=== PATIENT | male | born 1950 | race Two or more races ===

== ENCOUNTER 2018-11-06 07:05 | Day surgery (SDC) | payer OTHER ==
[~2018-11-06] VITALS: Ht 165.1 cm; Wt 79.4 kg
[2018-11-06] VITALS (11 sets, daily range): BP systolic 113–151; BP diastolic 59–85
[~2018-11-06 07:05] MED LIST: NKM; ceFAZolin 1gm IVPB IVPB ONE; celeBREX 200mg Cap **SURGERY PATIENTS ONLY ORAL ONE; oxyCONTIN 20mg tab ORAL ONE
--- NOTE | 2018-11-06 07:25 | Pre-Procedure Note/Attestation ---
Pre-Procedure Note/Attestation Complete Prior to Procedure Planned Procedure: right Procedure Narrative: shoulder arthroscopy, sad Indications for Procedure Pre-Operative Diagnosis: right shoulder impingement Attestation I attest that I discussed the nature of the procedure; its benefits; risks and complications; and alternatives (and the risks and benefits of such alternatives ), prior to the procedure, with the patient (or the patient's legal title insurance sales representative). I attest that, if there was a reasonable possibility of needing a blood transfusion, the patient (or the patient's legal title insurance sales representative) was given the [facility] standardized written summary, pursuant to the [place] Blood Safety Act ([place] Health and Safety Code # 1645, as amended). I attest that I re-evaluated the patient just prior to the surgery and that there has been no change in the patient's H&P, except as documented below: Gokul Lepe MD November 06, 2018 07:25
--- NOTE | 2018-11-06 07:26 | Operative Note - PDOC ---
Operative Note Operative Note Pre-op Diagnosis: right shoulder impingement Procedure: see op report Post-op Diagnosis: same as pre-op plus Operative Findings: consistent w/pre-op dx studies Anesthesia: MAC Specimen: none Complications: none Condition: stable Implant(s) used?: No Gokul Lepe MD November 06, 2018 07:26
[2018-11-06] MEDS ORDERED: Tylenol #3 tab (300mg/30mg) ORAL PRN (07:30)
[2018-11-06] MEDS ORDERED: HYDROmorphone 1mg/ml Carpuject SUBQ PRN (07:30)
[2018-11-06] MEDS ORDERED: D5 1/2NS 1,000 ML IV SCH (07:30)
[2018-11-06] MEDS ORDERED: HYDROcodone/Acetamin 5/325 tab ORAL PRN ×2 (07:30→10:45)
[2018-11-06] MEDS ORDERED: SAW PALMETTO C1 EACH PO (09:00)
[2018-11-06] MEDS ORDERED: oxyCONTIN 20mg tab ORAL ONE (09:12)
[2018-11-06] MEDS ORDERED: celeBREX 200mg Cap **SURGERY PATIENTS ONLY ORAL ONE (09:12)
[2018-11-06] MEDS ORDERED: NS Irrig 4000ml IRRIG ONE ×2 (10:30→11:59)
[2018-11-06] MEDS ORDERED: LR 1000ml ONE (10:30)
[2018-11-06] MEDS ORDERED: LR 1000ml 1,000 ML IVLG SCH (10:40)
[2018-11-06] MEDS ORDERED: Propofol 200mg/20ml IV ONE (10:44)
[2018-11-06] MEDS ORDERED: Dexamethasone 4mg/ml vial ONE ×2 (10:44→10:50)
[2018-11-06] MEDS ORDERED: Sodium Chloride 10ml vial INJ ONE (10:44)
[2018-11-06] MEDS ORDERED: Lidocaine 1% MPF 10mg/ml 5ml ONE (10:44)
--- NOTE | 2018-11-06 10:44 | Anethesia Preoperative Eval ---
Anesthesia Pre-op PMH/ROS General Date of Evaluation: November 06, 2018 Time of Evaluation: 10:36 Anesthesiologist: Brissa ASA Score: ASA 2 Mallampati Score Class I : Soft palate, uvula, fauces, pillars visible Class II: Soft palate, uvula, fauces visible Class III: Soft palate, base of uvula visible Class IV: Only hard plate visible Mallampati Classification: Class III Surgeon: Roberth Diagnosis: R Shoulder Pain Surgical Procedure: R Shoulder Arthroscopy Family History: no anesthesia problems Allergies: Coded Allergies: No Known Allergies (Unverified , 11/05/18) Medications: see eMAR Patient NPO?: Yes Past Medical History Cardiovascular: Reports: HTN PSxH Narrative: Inguinal Hernia Repair Anesthesia Pre-op Phys. Exam Physician Exam Last Vital Signs Date Time Temp Pulse Resp B/P (MAP) Pulse Ox O2 Delivery O2 Flow Rate FiO2 11/06/18 09:07 97.7 66 20 151/82 95 Room Air Constitutional: NAD Neurologic: CN 2-12 intact Cardiovascular: RRR Respiratory: CTA Gastrointestinal: S/NT/ND Airway Exam Mallampati Score: Class III MO: full TMD: Rececding Chin ROM: limited Teeth: missing, intact Anesthesia Pre-op A/P Risk Assessment & Plan Assessment: ASA 2 Plan: GA, Supraclavicular Block, SED Status Change Before Surgery: No Pre-Antibiotics Dru Gram Ancef IV Given Within 1 Hr of Incision: Yes Time Given: 11:01 Mitchell Brumfield MD November 06, 2018 10:44
[2018-11-06] MEDS ORDERED: Hydromorphone 0.5mg/0.5ml inj IVP PRN (10:45)
[2018-11-06] MEDS ORDERED: Labetalol 5mg/ml 20ml vial IV PRN (10:45)
[2018-11-06] MEDS ORDERED: Alfentanil 2ml Inj ONE (10:45)
[2018-11-06] MEDS ORDERED: Meperidine 50mg/ml Inj(FOR RIGORS ONLY) IVP PRN (10:45)
[2018-11-06] MEDS ORDERED: EPINEPHrine 1mg/1ml Amp ONE ×2 (10:45→11:01)
[2018-11-06] MEDS ORDERED: DiphenhydrAMINE 50mg/ml Inj IVP PRN (10:45)
[2018-11-06] MEDS ORDERED: fentaNYL 100 mcg/2 mL IV PRN (10:45)
[2018-11-06] MEDS ORDERED: Ropivacaine 5mg/ml Vial 30ml INJ ONE (10:45)
[2018-11-06] MEDS ORDERED: Ketorolac 30mg Inj IV PRN ×2 (10:45)
[2018-11-06] MEDS ORDERED: Metoclopramide 10mg/2ml Inj IVP PRN (10:45)
[2018-11-06] MEDS ORDERED: oxyCODONE HCL/Acetaminophen 5/325mg ORAL PRN (10:45)
[2018-11-06] MEDS ORDERED: Atropine Sulfate 0.4mg/ml inj IVP PRN (10:45)
[2018-11-06] MEDS ORDERED: LORazepam Inj 2mg/ml 1ml IV PRN (10:45)
[2018-11-06] MEDS ORDERED: Midazolam 2mg/2ml Inj IVP PRN (10:45)
[2018-11-06] MEDS ORDERED: HYDROcodone/Acetamin 7.5/325 tab ORAL PRN (10:45)
[2018-11-06] MEDS ORDERED: Kenalog-40 1ml Vial ONE (11:00)
[2018-11-06] MEDS ORDERED: Duramorph PF 5mg/10ml amp ONE (11:01)
[2018-11-06] MEDS ORDERED: Bupivacaine w/Epi 0.25% 30ml Vial INJ ONE (11:01)
[2018-11-06] MEDS ORDERED: Ketorolac 30mg Inj ONE (11:01)
--- NOTE | 2018-11-06 11:31 | Immediate Post-Op Evaluation ---
Immediate Post-Op Evalulation Immediate Post-Op Evalulation Procedure: R Shoulder Arthroscopy Date of Evaluation: November 06, 2018 Time of Evaluation: 13:02 IV Fluids: 800 LR Blood Products: 0 Estimated Blood Loss: 5 Urinary Output: 0 Blood Pressure Systolic: 125 Blood Pressure Diastolic: 59 Pulse Rate: 56 Respiratory Rate: 16 O2 Sat by Pulse Oximetry: 98 Temperature (Fahrenheit): 97.4 Pain Score (1-10): 2 Nausea: No Vomiting: No Complications 0 Patient Status: awake, reacts, patent, none Hydration Status: adequate Dru Gram Ancef IV Given Within 1 Hr of Incision: Yes Time Given: 11:01 Mitchell Brumfield MD November 06, 2018 11:31
--- NOTE | 2018-11-06 11:31 | 48 Hour Post Anesthesia Eval ---
Post Anesthesia Evaluation Procedure: R Shoulder Arthroscopy Date of Evaluation: November 06, 2018 Time of Evaluation: 15:12 Blood Pressure Systolic: 121 0: 57 Pulse Rate: 54 Respiratory Rate: 18 Temperature (Fahrenheit): 98.2 O2 Sat by Pulse Oximetry: 98 Airway: patent Nausea: No Vomiting: No Pain Intensity: 2 Hydration Status: adequate Cardiopulmonary Status: Stable Mental Status/LOC: patient returned to baseline Follow-up Care/Observations: 0 Post-Anesthesia Complications: 0 Follow-up care needed: ready to discharge Mitchell Brumfield MD November 06, 2018 11:31
--- NOTE | 2018-11-06 23:30 | Operative Note - Dictated ---
DATE OF OPERATION: 11/06/2018 PREOPERATIVE DIAGNOSES: 1. Right shoulder impingement syndrome. 2. Right shoulder rotator cuff tear. 3. Right shoulder SLAP tear. POSTOPERATIVE DIAGNOSES: 1. Right shoulder impingement syndrome. 2. Right shoulder rotator cuff tear. 3. Right shoulder SLAP tear. PROCEDURES: 1. Right shoulder extensive intra-articular debridement. 2. Right shoulder subacromial decompression bursectomy. 3. Right shoulder arthroscopic rotator cuff repair. SURGEON: Gokul Lepe M.D. ANESTHESIA: Interscalene with general. INDICATION FOR PROCEDURE: This is a pleasant gentleman, who has had progressive right shoulder pain. He had MRI, which showed a full-thickness or high-grade, almost full-thickness rotator cuff tear. He has failed conservative treatment and elected to undergo right shoulder arthroscopic rotator cuff repair. Risks, limitations, expectations, and complications of procedure were discussed in detail. All questions addressed. DESCRIPTION OF PROCEDURE: After informed consent was obtained, the patient was brought to the operating room. The patient was placed under interscalene general anesthesia. Right shoulder was prepped and draped in a sterile manner. A camera was placed in the right shoulder. There was some fraying of the superior labrum and the anterior labrum was intact. There was no chondral damage. The biceps tendon was intact. The footprint of rotator cuff had significant fraying and tearing. There was an area where consisted with full-thickness tear. A shaver was then placed through the tear into the glenohumeral joint. Debridement of the superior labrum was performed down to stable margin of tissue. The tissue lateral to the articular margin was debrided. Camera was then placed under subacromial space. Complete bursectomy was performed. Acromioplasty was started from lateral to medial and completed from posterior to anterior. Once that was completed, anchor was placed and the rotator cuff was tied. One of the sutures broke off the posterior limb and therefore the other suture limb had to be removed. Another anchor was attempted, however, it was not holding in place, therefore a corkscrew anchor was then used instead given that he had pretty weak bone. Hiller sutures were then placed along with lateral row anchor. Once that was completed, the footprint was recreated. At this point, the instruments were removed. Portal sites were closed with 3-0 Monocryl sutures. Steri-Strips and a sterile dressing were applied. The patient was awoken and taken to recovery room with stable vital signs. ESTIMATED BLOOD LOSS: None. COMPLICATIONS: None. SPECIMENS: None. IMPLANTS: Include [employer] rotator cuff repair anchors. Gokul Lepe M.D. DR: DIAN JOB#: [id number] CC: ERI
== END 2018-11-06 14:50 | disposition home or self-care (01) ==
LOC: SUR 07:05
DX: M75.121 Complete rotator cuff tear or rupture of right shoulder, not specified as traumatic (principal); M75.41 Impingement syndrome of right shoulder; S43.401A Unspecified sprain of right shoulder joint, initial encounter; X58.XXXA Exposure to other specified factors, initial encounter; Y92.9 Unspecified place or not applicable; E66.3 Overweight; Z68.29 Body mass index [BMI] 29.0-29.9, adult; I10 Essential (primary) hypertension
CPT/HCPCS: 29826; 29827; C1713; J0171; J0690; J1100; J2250; J2405; J2704; J2795; J3490; 94003; 94150

== ENCOUNTER 2019-01-06 05:09 | Inpatient (IN) | payer OTHER ==
[2019-01-06] VITALS (11 sets, daily range): BP systolic 92–151; BP diastolic 50–86
[~2019-01-06] VITALS: Ht 167.6 cm; Wt 85.3 kg
[~2019-01-06 05:09] MED LIST changes: +SAW PALMETTO C1 EACH PO; -ceFAZolin 1gm IVPB IVPB ONE; -celeBREX 200mg Cap **SURGERY PATIENTS ONLY ORAL ONE; -oxyCONTIN 20mg tab ORAL ONE
[2019-01-06] MEDS ORDERED: fentaNYL 100 mcg/2 mL IV ONE (06:37)
[2019-01-06] MEDS ORDERED: Midazolam 2mg/2ml Inj ONE (06:37)
[2019-01-06] MEDS ORDERED: Phenylephrine 10mg/ml Vial ONE (06:38)
[2019-01-06] MEDS ORDERED: Dexamethasone 4mg/ml vial ONE (06:38)
[2019-01-06] MEDS ORDERED: Lidocaine 1% MPF 10mg/ml 5ml ONE (06:38)
[2019-01-06] MEDS ORDERED: Vancomycin 1gm vial IVPB ONE (06:42)
[2019-01-06] MEDS ORDERED: Gelfoam Size TOPIC ONE (06:42)
[2019-01-06] MEDS ORDERED: Thrombin 5000 units TOPIC ONE (06:42)
[2019-01-06] MEDS ORDERED: Zemuron 50mg/5ml Inj IV ONE (06:43)
[2019-01-06] MEDS ORDERED: Bacitracin 50000 Units Vial ONE (06:43)
[2019-01-06] MEDS ORDERED: Succinylcholine 20mg/ml 10ml vial ONE (06:43)
[2019-01-06] MEDS ORDERED: Propofol 1,000mg/ 100ml btl IV ONE (07:00)
[2019-01-06] MEDS ORDERED: ceFAZolin sod 1 GM in NS 55 ML IVPB ONE (07:00)
[2019-01-06] MEDS ORDERED: Sterile Water Irrig 1000ml IRRIG ONE (07:00)
[2019-01-06] MEDS ORDERED: NS Irrig 1000ml ONE (07:00)
[2019-01-06] MEDS ORDERED: LR 1000ml ONE (07:00)
--- NOTE | 2019-01-06 07:20 | Pre-Procedure Note/Attestation ---
Pre-Procedure Note/Attestation Complete Prior to Procedure Planned Procedure: not applicable Procedure Narrative: Anterior cervical discectomy and fusion of C56 and 67 Indications for Procedure Pre-Operative Diagnosis: herniation C56,67 Attestation I attest that I discussed the nature of the procedure; its benefits; risks and complications; and alternatives (and the risks and benefits of such alternatives ), prior to the procedure, with the patient (or the patient's legal agency service representative). I attest that, if there was a reasonable possibility of needing a blood transfusion, the patient (or the patient's legal agency service representative) was given the [facility] standardized written summary, pursuant to the [employer] [place] Blood Safety Act ([place] Health and Safety Code # 1645, as amended). I attest that I re-evaluated the patient just prior to the surgery and that there has been no change in the patient's H&P, except as documented below: Chris Gayle MD Jan 06, 2019 07:20
--- NOTE | 2019-01-06 07:21 | Brief Operative Note ---
Immediate Post Operative Note Operative Note Chief Complaint: neck pain and radiculopathy Pre-op Diagnosis: herniation C56,67 Procedure: Anterior cervical discectomy and fusion of C56 and 67 Post-op Diagnosis: same as pre-op Findings: consistent w/pre-op dx studies Surgeon: Irwin Textile Machine Mechanic: Roberth Anesthesiologist: ABIMBOLA Anesthesia: general Specimen: none Complications: none Condition: stable Fluids: IVF Estimated Blood Loss: minimal Drains: none Implant(s) used?: Yes - nuvasive intelock c sz 6x2, screws 13mm x6 Chris Gayle MD Jan 06, 2019 07:21
[2019-01-06] MEDS ORDERED: Chloraseptic Spray 20mL Bottle ORAL PRN (07:30)
[2019-01-06] MEDS ORDERED: Morphine Sulfate 2mg/ml Inj(IV/IM USE ONLY) IV PRN (07:30)
[2019-01-06] MEDS ORDERED: HYDROcodone/Acetamin 5/325 tab ORAL PRN (07:30)
[2019-01-06] MEDS ORDERED: Milk of Magnesia 30ml Ud ORAL PRN (07:30)
[2019-01-06] MEDS ORDERED: Naloxone 0.4mg/ml Inj IVP PRN (07:30)
[2019-01-06] MEDS ORDERED: Metoclopramide 10mg/2ml Inj IVP PRN (07:30)
[2019-01-06] MEDS ORDERED: HYDROcodone/Acetamin 7.5/325 tab ORAL PRN ×2 (07:30)
[2019-01-06] MEDS ORDERED: HYDROmorphone 1mg/ml Carpuject IVP PRN (07:30)
[2019-01-06] MEDS ORDERED: Morphine Sulfate 4mg/ml Inj (IV USE ONLY) IV PRN ×2 (07:30)
[2019-01-06] MEDS ORDERED: ePHEDrine 50mg/ml Inj ONE (08:14)
[2019-01-06] MEDS ORDERED: Sodium Chloride 10ml vial INJ ONE (08:15)
[2019-01-06] MEDS ORDERED: Ketorolac 30mg Inj ONE (08:15)
[2019-01-06] MEDS ORDERED: Glycopyrrolate 0.2mg/ml 1ml Vial ONE (08:15)
[2019-01-06] MEDS ORDERED: Morphine Sulfate 10mg/ml Inj ONE (08:20)
--- NOTE | 2019-01-06 08:43 | Anethesia Preoperative Eval ---
Anesthesia Pre-op PMH/ROS General Date of Evaluation: Jan 06, 2019 Time of Evaluation: 07:02 Anesthesiologist: Joseph ASA Score: ASA 2 Mallampati Score Class I : Soft palate, uvula, fauces, pillars visible Class II: Soft palate, uvula, fauces visible Class III: Soft palate, base of uvula visible Class IV: Only hard plate visible Mallampati Classification: Class II Surgeon: Irwin Diagnosis: Cervical radiculopathy Surgical Procedure: ACDF Family History: no anesthesia problems Allergies: Coded Allergies: No Known Allergies (Unverified , 01/05/19) Medications: see eMAR Patient NPO?: Yes NPO Date: Jan 05, 2019 NPO Time: 1999 Past Medical History Cardiovascular: Denies: HTN, CAD, [place], valve dz, arrhythmia, other Pulmonary: Denies: asthma, COPD, LARISA, other Gastrointestinal/Genitourinary: Reports: GERD; Denies: CRI, ESRD, other Neurologic/Psychiatric: Reports: depression/anxiety; Denies: dementia, CVA, TIA, other Endocrine: Reports: hypothyroidism; Denies: DM, steroids, other HEENT: Denies: cataract (L), cataract (R), glaucoma, BISHOP PAIUTE (L), BISHOP PAIUTE (R), other Hematology/Immune: Denies: anemia, DVT, bleeding disorder, other Musculoskeletal/Integumentary: Denies: OA, RA, DJD, DDD, edema, other Other: other - overweight PMH Narrative: as above PSxH Narrative: Shoulder scope hernia repair Anesthesia Pre-op Phys. Exam Physician Exam Last Vital Signs Date Time Temp Pulse Resp B/P (MAP) Pulse Ox O2 Delivery O2 Flow Rate FiO2 01/06/19 06:11 Room Air 01/06/19 05:40 97.2 69 20 140/86 (104) 96 Constitutional: NAD Neurologic: CN 2-12 intact Cardiovascular: RRR, no M/R/G Respiratory: CTA Gastrointestinal: S/NT/ND Airway Exam Mallampati Score: Class II MO: limited Neck: short, micrognatia ROM: limited Teeth: missing Dentures: no upper, no lower Anesthesia Pre-op A/P Labs see chart Studies Pre-op Studies: EKG - NSR, CXR - WNL, echo - EF 55-60% Risk Assessment & Plan Assessment: ASA 2 Plan: GA with ETT neuromonitoring Status Change Before Surgery: No Pre-Antibiotics Drug: Ancef 2gr. Given Within 1 Hr of Incision: Yes Time Given: 07:52 Dano Ruiz MD Jan 06, 2019 08:43
[2019-01-06] MEDS ORDERED: LR 1000ml 1,000 ML IVLG SCH (08:45)
[2019-01-06] MEDS ORDERED: DiphenhydrAMINE 50mg/ml Inj IVP PRN (08:45)
[2019-01-06] MEDS ORDERED: Acetaminophen (Non formulary) 100 ML IV ONE (08:45)
[2019-01-06] MEDS ORDERED: Ketorolac 30mg Inj IV PRN (08:45)
[2019-01-06] MEDS ORDERED: Hydromorphone 0.5mg/0.5ml inj IVP PRN (08:45)
[2019-01-06] MEDS: Docusate 100mg cap ORAL SCH ×2 (09:00→17:29)
--- NOTE | 2019-01-06 09:03 | NUR ---
CASE MANAGEMENT:REVIEW 68 YR OLD MALE HER FOR ELECTIVE SURGERY SI: NECK PAIN AND RADICULOPATHY 97.2 69 20 140/86 96% ON RA IS; TO SURGERY FOR ANTERIOR CERVICAL DISCECTOMY AND FUSION IV ANCEF Q8HRS IV DECADRON Q6HRS IV DILAUDID PRN PAIN : TO MED/SURG POST OP ~ 3 EAST INTERQUAL CRITERIA MET
--- NOTE | 2019-01-06 09:58 | General Progress Note ---
Assessment/Plan Assessment/Plan: neck pain and radiculopathy herniation C56,67 Anterior cervical discectomy and fusion of C56 and 67 PLAN 1. incentive spirometry 2. SCD 3. PT evaluation and therapy 4. Hydration 5. Pain management 6. discharge once stable with outpatient follow up Subjective Allergies: Coded Allergies: No Known Allergies (Unverified , 01/05/19) Subjective asked to follow Objective Last 24 Hour Vital Signs Date Time Temp Pulse Resp B/P (MAP) Pulse Ox O2 Delivery O2 Flow Rate FiO2 01/06/19 06:11 Room Air 01/06/19 05:40 97.2 69 20 140/86 (104) 96 Height (Feet): 5 Height (Inches): 6.00 Weight (Pounds): 188 Eugenio Hernandez MD Jan 06, 2019 09:58
--- NOTE | 2019-01-06 10:01 | Immediate Post-Op Evaluation ---
Immediate Post-Op Evalulation Immediate Post-Op Evalulation Procedure: ACDF C5-C7 Date of Evaluation: Jan 06, 2019 Time of Evaluation: 10:00 IV Fluids: 1000 Blood Products: none Estimated Blood Loss: 50 Urinary Output: 300 Blood Pressure Systolic: 104 Blood Pressure Diastolic: 56 Pulse Rate: 78 Respiratory Rate: 20 O2 Sat by Pulse Oximetry: 98 Temperature (Fahrenheit): 97.5 Pain Score (1-10): 1 Nausea: No Vomiting: No Complications NONE Patient Status: reacts, patent, extubated, none Hydration Status: adequate Dano Ruiz MD Jan 06, 2019 10:01
[2019-01-06] MEDS: Meperidine 50mg/ml Inj(FOR RIGORS ONLY) IV PRN ×2 (10:12→12:23)
--- NOTE | 2019-01-06 11:15 | NUR ---
NURSE NOTES:Received fr.pacu by bed s/p acdf c6/7 under general anesthesia,neck incision c/d/i.with dermabond ,a/o x4,with 2 liters n/c,moving all extremities,iv site patent,no c/o pain.plan of care discussed and understood.
[2019-01-06] MEDS: Dexamethasone 4mg/ml vial IVP SCH ×3 (12:26→23:29)
[2019-01-06] MEDS: NS w/KCl 20mEq 1000ml 1,000 ML IV SCH ×2 (13:58→22:57)
--- NOTE | 2019-01-06 14:38 | Diagnostic Imaging Report ---
INDICATION: Pain, intraoperative, neck pain TECHNIQUE: Intraoperative imaging Fluoroscopy time: 16 seconds Total dose: [id number] mGym2 Total number of images: 4 COMPARISON: None FINDINGS: Intraoperative images demonstrate a localizer tool projected at the anterior aspect of the C6-7 disc. Subsequent images document placement of anterior fusion hardware at C5-6 and C6-7. IMPRESSION: Intraoperative imaging, as described
[2019-01-06] MEDS: ceFAZolin sod 1 GM in D5W 55 ML IV SCH ×2 (16:19→23:32)
--- NOTE | 2019-01-06 16:45 | Operative Note - Dictated ---
DATE OF OPERATION: 01/06/2019 SURGEON: Chris Gayle MD, orthopedic spine surgeon. SPECIAL EDUCATION EDUCATIONAL ASSISTANT SURGEON: Gokul Lepe M.D. PREOPERATIVE DIAGNOSES: 1. Intractable neck pain. 2. Radiculopathy. 3. Herniation, C5-C6 and C6-C7. 4. Neural foraminal stenosis C5-C6 and C6-C7. 5. Stenosis. POSTOPERATIVE DIAGNOSES: 1. Intractable neck pain. 2. Radiculopathy. 3. Herniation, C5-C6 and C6-C7. 4. Neural foraminal stenosis C5-C6 and C6-C7. 5. Stenosis. PROCEDURE PERFORMED: 1. Anterior cervical discectomy and fusion of C5-C6 Nuvasive Interlock Cage, size 6 mm, a total of three 13 mm screws, with the insertion of 1 mL of allograft Osteocel bone and Anterior cervical discectomy and fusion C6-C7 using Nuvasive Interlock Cage, size 6 mm, a total of three 13 mm screws, with the insertion of 1 mL of allograft Osteocel bone. 2. Use of intraoperative microscope. 3. Motor evoked potential monitoring. 4. Somatosensory evoked potential monitoring. 5. Supervision and interpretation of fluoroscopy. COMPLICATIONS: None. ANESTHESIA: General. ESTIMATED BLOOD LOSS: Less than 100 mL. INDICATIONS FOR SURGERY: This patient is a 68-year-old male who has a history of intractable neck pain, radiculopathy, herniation, C5-C6 and C6-C7, neural foraminal stenosis C5-C6 and C6-C7, stenosis. We tried a course of conservative management but despite this course there was still a significant component of persistent, recalcitrant neck pain and arm pain. The MRI demonstrated significant neural foraminal compromise secondary to disc herniations at C5-C6 and C6-C7. We had a long discussion with Barry regarding the risks and benefits of surgery. Our discussion included but was not limited to nonoperative management, chiropractic management, another epidural steroid injection as well definitive management in the form of surgery. We recommended an anterior cervical discectomy and fusion of C5-C6 and C6-C7. We reviewed the risks and benefits of surgery with the patient. Our discussion included a comprehensive review of the clinical issues and the nature of the clinical decision. We reviewed the alternatives, including doing nothing. The patient elected to proceed accordingly with anterior cervical discectomy and fusion of C5-C6 and C6-C7. We had a long discussion regarding the risks, alternatives and benefits of surgery. Our description of the risks included a discussion in person as well as a signed consent which detailed all pertinent risks from the procedure itself. Briefly, our discussion included but was not limited to infection, bleeding, pseudarthrosis, spinal cord injury, neurovascular injury, dural tear, CSF leak, neuropathy, paralysis, permanent weakness/drop foot/drop arm, paresthesias, blindness, palsy and weakness. The patient understood there may be a need for a revision surgery or additional procedures. Approach-related complications including dysphonia, dysphagia, blindness, permanent vocal cord and neural injury, hematoma, swallowing and breathing difficulty. Medical complications were reviewed including liver, kidney, shock, cardiopulmonary failure, anesthesia complications including , swelling, damage to the musculature, larynx/voice injury or loss, esophagus/throat, trachea, blood vessels and muscles/muscular sprain and lungs/pneumothorax during this surgical procedure; injury to deeper structures may be temporary or permanent. After this review of risks, the patient understood these and elected to proceed. A written and verbal consent was given. We discussed the pros and cons of all the alternatives. We discussed the uncertainties associated with the decision. Afterwards I assessed the patient's understanding and explored their preferences. All questions were answered and no guarantees were given. Medical clearance was obtained prior to surgery. INTRAOPERATIVE FINDINGS: At C5-C6, there was a tear noted in the posterior longitudinal ligament. This tear was left sided approximately 30 degrees cephalad to caudad. Through this tear, there was a communication of nuclear tissue, which is herniated posteriorly and encroached on the left neural foramina. The disc material was soft and not calcified. At C6-C7, there was a tear noted in the posterior longitudinal ligament approximately 20 degrees in cephalad to caudad. Through this tear, there was again some herniated nuclear tissue, which communicated with neural foramina and it is causing impingement on the left-sided neural elements therein. This disc was calcified. DESCRIPTION OF PROCEDURE: Under the benefit of general endotracheal anesthesia and with the assistance of the entire operative team, the patient was moved from the [place] onto the operative table in the supine position. The head was secured and carefully positioned appropriately. Bilateral arms were secured with Gelpads and foam and all bony prominences were padded. For the bilateral lower extremities SCD and SIRIA hose were placed for DVT prophylaxis. A surgical timeout was called which corroborated our planned procedure of anterior cervical discectomy and fusion of C5-C6 and C6-C7. Preoperative antibiotics were administered within 30 minutes of the incision for antibiotic prophylaxis. Using lateral fluoroscopic radiography, the operative levels were delineated. Next the wound was prepped and draped with Chlorhexidine and sterile drapes. An incision was based on lateral fluoroscopy and we centered our incision at the C5-C6 and C6-C7 interspace and next using a standard Degroot-Brush anterior based approach the incision was taken down through the skin and subcutaneous tissues until the vertebral bodies and their corresponding disc spaces were visualized. A needle was placed into the interspace to confirm placement of the operative interspace and we performed the remainder of procedure under microscopic visualization. Next, using a bipolar and Bovie cautery to ensure meticulous hemostasis, the longus colli was mobilized bilaterally and retractors were placed deep to the longus colli bilaterally to address retraction. Next we turned our attention to the radical anterior discectomy. This was initially performed at C5-C6. First by using a 15 blade scalpel followed by narrow pituitaries and a micro-sect 5-B curette was used to denude the endplate of all cartilaginous tissue. Next using a [employer] AM8 drillbit the vertebral cartillagenous endplates were removed in a cell-by- cell and layer by layer fashion, and ultimately the posterior uncinate joints bilaterally and posterior osteophytic lips and margins causing central and lateral impingement were carefully denuded until visualization of the posterior longitudinal ligament was possible. An endplate preparation was performed in the exact same fashion using an intervertebral produce field merchandiser, sequential distraction was obtained throughout the disc space. We saw a tear/rent in the PLL and this was carefully mobilized and dissected using a micro-set 1-B curet until we visualized a broad-based disc herniation with compression of the spinal cord as well as neural foramina left more than right sided. At C5-C6, there was a tear noted in the posterior longitudinal ligament. This tear was left sided approximately 30 degrees cephalad to caudad. Through this tear, there was a communication of nuclear tissue, which is herniated posteriorly and encroached on the left neural foramina. The disc material was soft and not calcified. This neural foraminal compression was carefully resected using a Kerrison-1 and Kerrison-2 rongeurs until complete decompression of the spinal cord was visualized and complete decompression of the neural foramina and nerve root therein as well as the axilla and lateral margin of the nerve root was visualized and subsequently completely decompressed. The family was notified at one hour intervals throughout the procedure to provide for consistent updates. We next turned our attention towards trialing our implant within the disc space. We initially tried size 5 and afterwards size 6 trial from the Nuvasive Interlock Cage at each level, which appeared to be appropriate under AP and lateral fluoroscopy as well as in terms of its height, depth, width and lack of toggle. The PEEK polyetheretherketone interbody cages were then both packed with allograft bone from Osteocel and local autograft bone matrix. Next these were then carefully advanced and secured into their intervertebral spaces under direct visualization and with supervision of AP and lateral fluoroscopic views. We next turned our attention towards plating. Plating was performed with [employer] interlock-C plating system. A total of three 13 mm screws, in length were inserted and confirmed under AP and lateral fluoroscopy and confirmed to be in excellent position. Next we turned our attention to the radical anterior discectomy at the C6-C7 level. First by using a 15 blade scalpel followed by narrow pituitaries and a micro-sect 5-B curette was used to denude the endplate of all cartilaginous tissue. Next using a [employer] AM8 drillbit the vertebral endplates were removed in a hcyk-tc-xoer and layer by layer fashion, and ultimately the posterior uncinate joints bilaterally and posterior osteophytic lips and margins causing central and lateral impingement were carefully denuded until visualization of the posterior longitudinal ligament was possible. An endplate preparation was performed in the exact same fashion using an intervertebral produce field merchandiser, sequential distraction was obtained throughout the disc space. We saw a tear/rent in the PLL. At C6-C7, there was a tear noted in the posterior longitudinal ligament approximately 20 degrees in cephalad to caudad. Through this tear, there was again some herniated nuclear tissue, which communicated with neural foramina and it is causing impingement on the left-sided neural elements therein. This disc was calcified. This was carefully mobilized and dissected using a micro-set 1-B curet until we visualized a broad-based disc herniation with compression of the spinal cord as well neural foramina left more than right sided. This neural foraminal compression was carefully resected using a Kerrison-1 and Kerrison-2 rongeurs until complete decompression of the spinal cord was visualized and complete decompression of the neural foramina and nerve root therein as well as the axilla and lateral margin of the nerve root was visualized and subsequently completely decompressed. We next turned our attention towards trialing our implant within the disc space. We initially tried size 5 and afterwards size 6 trial from the Nuvasive Interlock Cage at each level, which appeared to be appropriate under AP and lateral fluoroscopy as well as in terms of its height, depth, width and lack of toggle. The PEEK polyetheretherketone interbody cages were then both packed with allograft bone from Osteocel and local autograft bone matrix. Next these were then carefully advanced and secured into their intervertebral spaces under direct visualization and with supervision of AP and lateral fluoroscopic views. We initially tried size 5 and afterwards size 6 trial from the Nuvasive Interlock Cage at each level, which appeared to be appropriate under AP and lateral fluoroscopy as well as in terms of its height, depth, width and lack of toggle. The PEEK polyetheretherketone interbody cages were then both packed with allograft bone from Osteocel and local autograft bone matrix. Next these were then carefully advanced and secured into their intervertebral spaces under direct visualization and with supervision of AP and lateral fluoroscopic views. We next turned our attention towards plating. Plating was performed with Nuvasive interlock-C plating system. A total of three 13 mm screws, size 6 mm in length were inserted and confirmed under AP and lateral fluoroscopy and confirmed to be in excellent position. After a finger sweep we confirmed removal of all sponges. The retractor was removed and we next turned our attention to meticulous hemostasis with FloSeal and bipolar cautery. After the sponge and needle count was again found to be correct with our second count, we next turned our attention to closure. The wound was again copiously irrigated with antibiotic impregnated saline. Closure consisted of 4-0 clear nylon for the platysma, and 6-0 clear nylon for the superficial skin. Final skin closure and dressings consisted of Dermabond. Prior to final closure, a final radiograph was obtained which demonstrated the hardware is intact with excellent position throughout. The patient tolerated the procedure well. The patient was carefully extubated after the conclusion of surgery. We discussed the findings of the surgery with the family upon completion of the case. At this point the patient was transferred to the spine floor for further observation. Chris Gayle M.D. DR: SENIA JOB#: [id number] CC: ERI
--- NOTE | 2019-01-06 19:09 | NUR ---
HAND-OFF: Report given to MENDEL MAS.PATIENT STABLE.
--- NOTE | 2019-01-06 19:10 | NUR ---
NURSE NOTES: Received patient from day nurse. Patient in bed, awake and oriented x 4. On room air, no s/s of respiratory distress. Bed in low position, locked, bed alarm on, call light within reach. Bilateral scds on.
[2019-01-07] VITALS: BP 147/77
[2019-01-07 04:00] VITALS: BP 159/79
[2019-01-07] MEDS: Dexamethasone 4mg/ml vial IVP SCH (05:22)
--- NOTE | 2019-01-07 07:17 | NUR ---
NURSE NOTES:Received report frmonster rn(melvin),bedside rounds done,pt in good spirit,anticipating to go home today.awaiting for pt work up.iv site patent,incision clean looking,tolerating diet well.
[2019-01-07 08:00] VITALS: BP 161/86
--- NOTE | 2019-01-07 08:26 | General Progress Note ---
Assessment/Plan Assessment/Plan: neck pain and radiculopathy herniation C56,67 Anterior cervical discectomy and fusion of C56 and 67 PLAN 1. incentive spirometry 2. SCD 3. PT evaluation and therapy 4. Hydration 5. Pain management 6. discharge planning Subjective Allergies: Coded Allergies: No Known Allergies (Unverified , 01/05/19) Subjective overnight care noted Objective Last 24 Hour Vital Signs Date Time Temp Pulse Resp B/P (MAP) Pulse Ox O2 Delivery O2 Flow Rate FiO2 01/07/19 08:00 97.8 85 20 161/86 (111) 93 01/07/19 07:17 Room Air 01/07/19 04:00 98.9 60 20 159/79 (105) 97 01/07/19 00:00 98.7 83 18 147/77 (100) 94 01/06/19 23:17 98.9 94 20 151/74 (99) 98 01/06/19 21:00 Room Air 2.0 01/06/19 16:00 97.8 78 20 117/60 (79) 95 01/06/19 11:45 98.0 70 20 115/64 (81) 98 01/06/19 11:30 Nasal Cannula 2.0 01/06/19 11:15 98.2 66 20 123/60 (81) 99 01/06/19 10:45 97.6 61 18 108/53 98 Nasal Cannula 3 01/06/19 10:30 64 18 92/50 98 Nasal Cannula 3 01/06/19 10:20 62 18 102/59 98 Nasal Cannula 3 01/06/19 10:10 68 15 96/53 98 Simple Mask 6 01/06/19 10:01 78 20 98 01/06/19 10:00 62 17 97/52 98 Simple Mask 6 01/06/19 09:54 97.2 78 20 115/68 98 Simple Mask 6 Intake and Output 01/06/19 01/07/19 19:00 07:00 Intake Total 1275 ml Output Total 350 ml Balance 925 ml Intake Oral 720 ml IV Total 555 ml Output Urine Total 300 ml Estimated Blood Loss 50 ml # Voids 1 Height (Feet): 5 Height (Inches): 6.00 Weight (Pounds): 188 Objective WDWN NAD clear breath sounds bilaterally without rhonchi or wheeze [id number] without MRG NABS nontender no HSM no CCE nonfocal Eugenio Hernandez MD Jan 07, 2019 08:26
[2019-01-07] MEDS: Docusate 100mg cap ORAL SCH (08:30)
[2019-01-07] MEDS: NS w/KCl 20mEq 1000ml 1,000 ML IV SCH (08:30)
[2019-01-07] MEDS: ceFAZolin sod 1 GM in D5W 55 ML IV SCH (08:35)
--- NOTE | 2019-01-07 09:10 | NUR ---
PT EVALUATION NOTE Patient seen for initial evaluation, see complete evaluation for details. Patient presents with impaired functional mobility s/p cervical surgery. Patient at supervised/SBA level for bed mobility, transfers and ambulation. Patient instructed in proper log roll technique for in/OOB and in cervical precautions. Patient will benefit from skilled inpatient PT intervention to address functional mobility and patient education regarding cervical precautions. Anticipate discharge home once medically cleared by MD. No DME needs identified at this time. Addendum: 01/07/19 at 1110 by LEIGH ALEJANDRO PT Amended: Links added.
--- NOTE | 2019-01-07 09:20 | NUR ---
NURSE NOTES:Ambulated in hallway with physical therapy,tolerated activity well.
[2019-01-07 10:00] VITALS: BP 135/83
[2019-01-07] MEDS ORDERED: NORCO 10-325 T1 EACH ORAL (10:16)
[2019-01-07] MEDS ORDERED: CARISOPRODOL350 MG ORAL (10:16)
--- NOTE | 2019-01-07 11:50 | NUR ---
NURSE NOTES:d/c instructions given,education printed in slovenian including rx,cds,.pt. 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
[2019-01-07 12:37] VITALS: BP 143/58
--- NOTE | 2019-01-07 12:37 | 48 Hour Post Anesthesia Eval ---
Post Anesthesia Evaluation Procedure: ACDF C5-C7 Date of Evaluation: Jan 07, 2019 Time of Evaluation: 12:35 Blood Pressure Systolic: 143 0: 58 Pulse Rate: 74 Respiratory Rate: 20 Temperature (Fahrenheit): 97.5 O2 Sat by Pulse Oximetry: 98 Airway: patent Nausea: No Vomiting: No Pain Intensity: 2 Hydration Status: adequate Cardiopulmonary Status: stable Mental Status/LOC: patient returned to baseline Follow-up Care/Observations: n/a Post-Anesthesia Complications: none Follow-up care needed: ready to discharge Dano Ruiz MD Jan 07, 2019 12:37
--- NOTE | 2019-01-07 12:44 | Discharge Summary ---
Discharge Summary Hospital Course Date of Admission Jan 06, 2019 at 05:09 Date of Discharge Jan 07, 2019 at 11:50 Admitting Diagnosis Herniated nucleus pulposus, neck pain, cervical radiculopathy. Reason for Hospitalization: elective surgery HPI Barry Sauceda is a 68 year old male who was admitted on Jan 06, 2019 at 05:09 for Herniated Nucleus Pulposus,Pain, Radiculopathy. Initially course of conservative management was attempted, but despite this course, there was still a significant component of persistent, recalcitrant neck pain and arm pain. The MRI demonstrated significant neural foraminal compromise secondary to disc herniations at C5-C6 and C6-C7. Patient was admitted for elective surgery. Consultations Dr Hernandez IM Procedures s/p 01/06/[address] Gayle 1. Anterior cervical discectomy and fusion of C5-C6 Nuvasive Interlock Cage, size 6 mm, a total of three 13 mm screws, with the insertion of 1 mL of allograft Osteocel bone and Anterior cervical discectomy and fusion C6-C7 using Nuvasive Interlock Cage, size 6 mm, a total of three 13 mm screws, with the insertion of 1 mL of allograft Osteocel bone. 2. Use of intraoperative microscope. 3. Motor evoked potential monitoring. 4. Somatosensory evoked potential monitoring. 5. Supervision and interpretation of fluoroscopy. Hospital Course status post surgery on 01/06 course of recovery was uneventful initially IV fluids s/p perioperative antibiotics and steroid neurovascular status closely monitored, stable incision with dressing, clean, dry, and intact pain management addressed ; pain controlled hemodynamically stable ambulated with PT fall precautions maintained; safe for ambulation use of incentive spirometry was encouraged while in the bed patient slowly started on diet and advanced as tolerated Cepacol lozenges provided as needed for comfort tolerated diet , IV fluids discontinued GI prophylaxis provided antiemetics were on board as needed voided freely bowel regimen instituted patient was stable for discharge discharge instructions provided follow up as outpatient with surgeon in a clinic as advised by surgeon FINAL DIAGNOSES 1. Intractable neck pain. 2. Cervical radiculopathy. 3. Herniation, C5-C6 and C6-C7. 4. Neural foraminal stenosis C5-C6 and C6-C7. 5. s/p Anterior cervical discectomy and fusion of C56 and 67 Discharge Medications Continued Medications: Carisoprodol* (Carisoprodol*) 350 Mg Tablet 350 MG ORAL BID, TAB (This prescription has been renewed) Hydrocodone Bit/Acetaminophen 10-325* ([place] 10-325*) 1 Each Tablet 1 TAB ORAL Q8HR PRN for For Pain, #10 TAB 0 Refills (This prescription has been renewed) PRN PAIN No Known Medications* ([facility] - No Known Medications*) . 0 ., 0 Refills (This prescription has been renewed) Discharge Condition Upon Discharge: stable Discharge Disposition Patient was discharged home Discharge Instructions Discharge Instructions Special Instructions I have been assigned to complete a D/C Summary on this account. I was not involved in the patient management Brooke Murphy NP Jan 07, 2019 12:44
== END 2019-01-07 11:50 | disposition home or self-care (01) | DRG 473 ==
LOC: SDSOVERFLO 05:09 → 3E 11:34
PROC: 01N10ZZ Release Cervical Nerve, Open Approach (ICD-10-PCS; principal; 2019-01-06 07:00)
PROC: 0RG20K0 Fusion of 2 or more Cervical Vertebral Joints with Nonautologous Tissue Substitute, Anterior Approach, Anterior Column, Open Approach (ICD-10-PCS; principal; 2019-01-06 07:00)
PROC: 0RT30ZZ Resection of Cervical Vertebral Disc, Open Approach (ICD-10-PCS; principal; 2019-01-06 07:00)
PROC: 0RG20A0 Fusion of 2 or more Cervical Vertebral Joints with Interbody Fusion Device, Anterior Approach, Anterior Column, Open Approach (ICD-10-PCS; principal; 2019-01-06 07:00)
DX: M50.122 Cervical disc disorder at C5-C6 level with radiculopathy (principal); M48.02 Spinal stenosis, cervical region; M54.12 Radiculopathy, cervical region
CPT/HCPCS: 36415; 72040; 76000; 86850; 86900; 86901; 87081; 94003; 94150; J2250; J2370